=== PATIENT | female | born 1935 | race Caucasian/White ===

== ENCOUNTER 2021-02-04 11:14 | Emergency (ER) | payer MEDICARE, OTHER ==
[~2021-02-04 11:14] MED LIST: ACETAMINOPHEN325 MG PO; AUGMENTIN 875-1 EACH PO; AZITHROMYCIN250 MG PO; COLACE100 MG PO; COUMADIN 1MG TAB1 MG PO; COUMADIN2 MG PO; COUMADIN3 MG PO; ENEMA133 M1 PR; FEOSOL325 MG PO; FLORANEX TABLE1 EACH PO; FLORASTOR250 MG PO; FOLIC ACID1 MG PO; FUROSEMIDE 20MG20 MG PO; LAXATIVE SUPPOS10 MG PR; MEGACE ORA6 TSP/1 OZ PO; MICON-GUARD 2% TOP; MILK OF MA400 MG/5 M PO; MLYLANTA/MAALOX30 ML PO; NORCO 5-325 TA1 EACH PO; ONDANSETRON ODT4 MG SL; POTASSIUM CHLO20 ME2 PO; PRAVACHOL20 MG PO; PROZAC20 MG PO; SENOKOT8.6 MG PO; SYNTHROID88 MCG PO; TOPROL XL 25MG25 MG PO; TYLENOL650 MG PR; VITAMIN D325 MC1 PO; XARELTO10 MG PO
[2021-02-04 13:11] LABS: INR 3.05 (0.9-1.2); PROTHROMBIN TIME 30.1 SECONDS (11.4-13.6)
== END 2021-02-04 14:46 | disposition home or self-care (01) ==
LOC: FER 11:14
PROVIDERS: Emergency Medicine
DX: S70.02XA Contusion of left hip, initial encounter (principal); M25.551 Pain in right hip; M79.652 Pain in left thigh; R79.1 Abnormal coagulation profile; I10 Essential (primary) hypertension; I48.91 Unspecified atrial fibrillation; W01.0XXA Fall on same level from slipping, tripping and stumbling without subsequent striking against object, initial encounter
CPT/HCPCS: 36415; 73522; 73552; 85610